=== PATIENT | female | born 1975 | race African-American/Black ===

== ENCOUNTER → 2017-03-03 | Outpatient (CLI) | payer SELFPAY ==
[~2017-03-03] MED LIST: ACETAMINOPHEN W1 TA6 PO; AMOXICILLIN 50500 MG PO; DOXYCYCLINE 10100 MG PO; FLAGYL500 MG PO; IRON324 M1 PO; METRONIDAZOLE375 MG PO; NO HOME MEDICATIONS; NORCO 325 MG-51 TAB PO; PERCOCET 325 MG1 TA2 PO; PHENERGAN W/CO120 ML PO; REGLAN 10MG10 MG/TAB PO; SPRINTEC 35 MCG1 TAB PO; TRIAMCINOLONE0.1% TP; ULTRAM 50MG TAB50 MG PO; VICODIN 5/5001 UDTAB PO
[2017-03-03 13:18] LABS: BASO % 0.3 % (0.0-2.0); EOS # 0.2 (0.0-0.7); EOS % 3.4 % (0-4.0); GRAN # 3.2 (1.4-6.5); GRAN % 55.9 % (42.2-75.2); LYMPH # 1.9 (1.2-3.4); LYMPH % 32.7 % (20.0-51.0); MEAN CELL VOLUME 82 fl (80.0-100.0); MEAN CORPUSCULAR HGB CONC 33 g/dl (33.0-37.0); MEAN PLATELET VOLUME 9.9 fl (7.4-10.4); MONO # 0.4 (0.1-0.6); MONO % 7.4 % (1.7-9.3); PLATELET COUNT 203 K/mm3 (130-400); RED BLOOD COUNT 4.28 M/mm3 (4.10-5.30); REDCELL DISTRIBUTION WIDTH-CV 14.2 % (11.5-14.5); WHITE BLOOD COUNT 5.8 K/mm3 (4.8-10.8)
[2017-03-03 13:20] LABS: HEMATOCRIT 34.9 % (37.0-47.0); HEMOGLOBIN 11.4 g/dl (12.5-16.0); MEAN CORPUSCULAR HEMOGLOBIN 27 pg (27.0-31.0)
[2017-03-03 23:46] LABS: FOLLICLE STIMULATING HORMONE 10.9 mIU/mL (())
== END ==
LOC: COL.LAB 12:44
PROVIDERS: Obstetrics & Gynecology
DX: N92.6 Irregular menstruation, unspecified (principal)

== ENCOUNTER 2017-12-24 09:58 | Emergency (ER) | payer SELFPAY ==
[~2017-12-24] VITALS: Ht 165.1 cm; Wt 104.5 kg
[2017-12-24 09:59] VITALS: BP 120/71; TEMP 98.4
[2017-12-24 11:55] VITALS: PULSE 69
== END 2017-12-24 11:56 | disposition home or self-care (01) ==
LOC: COL.ER 09:58
DX: M54.31 Sciatica, right side (principal); Z98.51 Tubal ligation status; Z98.890 Other specified postprocedural states
CPT/HCPCS: J1885

== ENCOUNTER 2018-08-10 23:33 | Emergency (ER) | payer SELFPAY ==
[~2018-08-10] VITALS: Ht 165.1 cm; Wt 106.8 kg
[2018-08-10 23:34] VITALS: TEMP 99.2
[2018-08-10 23:58] LABS: BASO % 0.4 % (0.0-2.0); EOS # 0.3 (0.0-0.7); EOS % 3.8 % (0-4.0); GRAN # 5.3 (1.4-6.5); GRAN % 62.7 % (42.2-75.2); HEMOGLOBIN 11.9 g/dl (12.5-16.0); LYMPH # 2.1 (1.2-3.4); LYMPH % 25.4 % (20.0-51.0); MEAN CELL VOLUME 81 fl (80.0-100.0); MEAN CORPUSCULAR HEMOGLOBIN 27 pg (27.0-31.0); MEAN CORPUSCULAR HGB CONC 33 g/dl (33.0-37.0); MEAN PLATELET VOLUME 10.4 fl (7.4-10.4); MONO # 0.6 (0.1-0.6); MONO % 7.5 % (1.7-9.3); PLATELET COUNT 208 K/mm3 (130-400); RED BLOOD COUNT 4.47 M/mm3 (4.10-5.30); REDCELL DISTRIBUTION WIDTH-CV 13.2 % (11.5-14.5)
[2018-08-10 23:59] LABS: HEMATOCRIT 36.3 % (37.0-47.0)
[2018-08-11 00:08] LABS: ALANINE AMINOTRANSFERASE 16 U/L (9-52); ALBUMIN 4.2 gm/dL (3.5-5.0); ALKALINE PHOSPHATASE 56 U/L (50-136); ANION GAP 11 mmol/L (7-16); AST,SGOT 21 U/L (15-37); BILIRUBIN,TOTAL 0.4 mg/dL (0.0-1.0); BLOOD UREA NITROGEN 14 mg/dL (7-17); CALCIUM 9.6 mg/dL (8.4-10.2); CARBON DIOXIDE 22 mmol/L (22-30); CHLORIDE 107 mmol/L (98-107); CREATININE, serum 0.88 mg/dL (0.52-1.25); GLUCOSE 115 mg/dL (74-106); LIPASE 122 U/L (23-300); POTASSIUM 3.8 mmol/L (3.4-5.0); SODIUM 139 mmol/L (137-145)
[2018-08-11 00:29] LABS: TROPONIN-I < 0.012 ng/mL (0.000-0.035)
[2018-08-11 03:30] VITALS: BP 110/70; PULSE 80
== END 2018-08-11 03:52 | disposition home or self-care (01) ==
LOC: COL.ER 23:33
PROVIDERS: Emergency Medicine
DX: K21.9 Gastro-esophageal reflux disease without esophagitis (principal)
CPT/HCPCS: Q9967

== ENCOUNTER 2018-11-16 09:29 | Day surgery (SDC) | payer MEDICAID ==
[~2018-11-16] VITALS: Ht 162.6 cm; Wt 114.9 kg
[2018-11-16] MEDS ORDERED: PRIL40 PO (10:10)
[2018-11-16 10:11] VITALS: BP 123/77; PULSE 98; TEMP 97.2
[2018-11-16 12:23] VITALS: BP 129/77; PULSE 80
--- NOTE | 2018-11-16 12:23 | NUR ---
Pt to to [facility] 8 via cart from [place]. Pt drowsy, but awake. Denies pain or nausea. Pt ambulates to recliner with 2 stand by assist. Warm blanket provided. Water and applesauce given per pt request. Will continue to monitor. No visitors here with pt at this time. Call light within reach.
[2018-11-16 12:38] VITALS: BP 115/77; PULSE 84
--- NOTE | 2018-11-16 12:38 | NUR ---
Pt continues to rest. Tolerating food and fluids without difficulties. Call light within reach.
[2018-11-16 12:53] VITALS: BP 107/80; PULSE 71
--- NOTE | 2018-11-16 12:53 | NUR ---
Pt continues to rest. Denies needs. Call light within reach.
[2018-11-16 13:08] VITALS: BP 111/80; PULSE 72
--- NOTE | 2018-11-16 13:08 | NUR ---
Pt continues to rest. Denies needs. Call light within reach.
--- NOTE | 2018-11-16 13:15 | NUR ---
Discharge instructions reviewed. Pt voices understanding. IV site discontinued with all parts intact. Pt up to dress. Call light within reach.
--- NOTE | 2018-11-16 13:30 | NUR ---
Pt escorted to private car via wheel chair. Pt accompanied home by her friend.
== END 2018-11-16 13:30 | disposition home or self-care (01) ==
LOC: SDCO 09:29
DX: K21.0 Gastro-esophageal reflux disease with esophagitis (principal); K44.9 Diaphragmatic hernia without obstruction or gangrene; Z87.891 Personal history of nicotine dependence; Z98.51 Tubal ligation status
CPT/HCPCS: J2250; J2405; J3010; J7030

== ENCOUNTER 2020-06-16 23:07 | Emergency (ER) | payer MEDICAID ==
[~2020-06-16] VITALS: Ht 162.6 cm; Wt 113.6 kg
[~2020-06-16 23:07] MED LIST changes: +PRIL40 PO
[2020-06-16 23:17] VITALS: TEMP 99.8
[2020-06-17] MEDS ORDERED: ZOFRAN ODT4 MG PO (01:09)
[2020-06-17 01:27] VITALS: BP 145/78; PULSE 96
== END 2020-06-17 01:28 | disposition home or self-care (01) ==
LOC: COL.ER 23:07
DX: A08.4 Viral intestinal infection, unspecified (principal)

== ENCOUNTER 2020-06-20 03:37 | Inpatient (IN) | payer MEDICAID ==
[~2020-06-20] VITALS: Ht 162.6 cm; Wt 114.3 kg
[2020-06-20] VITALS (436 sets, daily range): BP systolic 109–122; BP diastolic 57–88; PULSE 84–92; TEMP 98.4–99.8; O2SAT 81–97
[~2020-06-20 03:37] MED LIST changes: +ZOFRAN ODT4 MG PO
[2020-06-20 04:14] LABS: BASO % 0.1 % (0.0-2.0); GRAN # 6.3 (1.4-6.5); GRAN % 78.6 % (42.2-75.2); HEMATOCRIT 37.1 % (37.0-47.0); HEMOGLOBIN 12.2 g/dl (12.5-16.0); LYMPH # 1.3 (1.2-3.4); LYMPH % 16.3 % (20.0-51.0); MEAN CELL VOLUME 81 fl (80.0-100.0); MEAN CORPUSCULAR HEMOGLOBIN 27 pg (27.0-31.0); MEAN CORPUSCULAR HGB CONC 33 g/dl (33.0-37.0); MEAN PLATELET VOLUME 10.2 fl (7.4-10.4); MONO # 0.4 (0.1-0.6); MONO % 4.5 % (1.7-9.3); PLATELET COUNT 230 K/mm3 (130-400); RED BLOOD COUNT 4.59 M/mm3 (4.10-5.30); REDCELL DISTRIBUTION WIDTH-CV 13.7 % (11.5-14.5)
[2020-06-20 04:32] LABS: ALBUMIN 4.2 gm/dL (3.5-5.0); BILIRUBIN,TOTAL 0.5 mg/dL (0.0-1.0); CALCIUM 8.7 mg/dL (8.4-10.2); CREATININE, serum 1.13 (0.52-1.25); POTASSIUM 3.3 mmol/L (3.4-5.0); TOTAL PROTEIN 8.1 gm/dL (6.4-8.2)
[2020-06-20 05:09] LABS: ARTERIAL BLD GAS O2 SATURATION 90.6 % (92-100); ARTERIAL BLD GAS TCO2 CT 27.7; ARTERIAL BLOOD GAS BASE EXCESS 2.3 (-2-2); ARTERIAL BLOOD GAS HCO3 26.5 meq/L (22-26); ARTERIAL BLOOD GAS PCO2 39.3 mmHg (35-45); ARTERIAL BLOOD GAS PO2 58.7 mmHg (80-100); ARTERIAL BLOOD GAS pH 7.45 (7.35-7.45)
--- NOTE | 2020-06-20 08:14 | NUR ---
PATIENT RESTING IN BED. SHE DENIES ANY PAIN OR FURTHER SOB WHILE LAYING IN BED. SHE TAKES NO HOME MEDICATIONS AND HAS NO ALLERGIES. AIRVO AT 30L SAT AT 92%. PATIENT IS NO COMFORTABLE IN BED.
--- NOTE | 2020-06-20 12:30 | NUR ---
Pt arrived to ICU room 8 at this time via w/c with medical staff. Able to get to bed with SBA, feeling very SOB when ambulating. On airvo at 45L to maintain 02 sats of 90%. Resting in bed now. Lungs are very diminished at the bases, and wheezing expiratory. Will continue to monitor.
--- NOTE | 2020-06-20 13:13 | NUR ---
attempted to call but no answer.
--- NOTE | 2020-06-20 17:30 | NUR ---
Pt has been doing well this afternoon. Resting in bed, denies any dyspnea at rest in bed, called sister per pt request. Kavitha [phone] she wuold like to be updated when possible with pt status. Denies pain, 2nd IV started to RH. Will continue to monitor.
--- NOTE | 2020-06-20 18:19 | NUR ---
Started transfusion of convalescent plasma at this time. Pt verbalized consent. Verified with 2nd RN. Pt feeling very SOB after ambulating to bathroom and back. Resting in bed now, will remain at bedside for first 15 minutes.
--- NOTE | 2020-06-20 19:32 | NUR ---
Shift report received. pt awake and lying in bed. no reactions to plasma this time. VS stable as charted. mild SOB at rest with strong occasional cough. call light within reach. will cont to monitor
--- NOTE | 2020-06-20 20:55 | NUR ---
Evening meds given. PT AOX4. denies pain. O2 sats maintained 93% on Airvo 45L. robutussin given for cough. reports no BM since but today is also first day she reports no nausea and ability to keep food down. ate approx 60% dinner. Aware of fluid restriction. tolerating meds. standby ambulation. FFP complete @ 1952. no reactions noted. IV X2 intact. potasium replaced day shift. continued low grade fever. ambulated in room for several minutes. call light within reach. requested all side rails up for comfort/personals. will cont to monitor
--- NOTE | 2020-06-20 21:10 | NUR ---
PT increased to 50L 80% by RT. O2 sat now 93-95%.
--- NOTE | 2020-06-20 23:07 | NUR ---
pt had a long coughing spell when attempting to stand and reposition in bed. desatted to 86% n 50L Airvo and experienced increased resulting SOB. RR 30-38. Was able to catch breath after 8 mins with O2 sat currently 92%. RT notified of tachypnea. denied chest pain, N/V. Just trouble catching her breath. call light within reach
--- NOTE | 2020-06-20 23:43 | NUR ---
PT RESTING IN BED. COUGH SYRUP GIVEN. CURRENTLY 95% ON 50L AIRVO AND RR 26 TO 33. PT DENIES INCREASED AIR HUNGER OR SOB. CALL LIGHT WITHIN REACH. WILL CONT TO MONITOR
[2020-06-21] VITALS (738 sets, daily range): BP systolic 100–118; BP diastolic 62–75; PULSE 77–91; TEMP 98–99.2; O2SAT 84–100
--- NOTE | 2020-06-21 00:30 | NUR ---
PT sustaining 90 to 94% on 50L Airvo @80%. RR ranging 24 to 33. unable to sleep due to not finding comfortable positioning. repositioned multiple times this shift. wondering of she could get some benadryl.
--- NOTE | 2020-06-21 03:55 | NUR ---
PT FELL ASLEEP BETWEEN 0200 AND 0345 BUT CALLED STATING SHE HAD WOKEN UP NAUSEOUS. ICE CHIPS PROVIDED AND REPORTS SOME RELIEF. DENIES CHEST PAIN, DIAPHORESIS, NO EMESIS NOTED, DENIES CLEMENT. VSS CHARTED. ASSESSMENT OTHERWISE UNCHANGED. VOIDED ONCE THUS FAR THIS SHIFT. CALL LIGHT WITHIN REACH
[2020-06-21 06:14] LABS: BASO % 0.1 % (0.0-2.0); GRAN # 8.7 (1.4-6.5); GRAN % 83.4 % (42.2-75.2); LYMPH # 1.1 (1.2-3.4); LYMPH % 10.2 % (20.0-51.0); MEAN CELL VOLUME 81 fl (80.0-100.0); MEAN CORPUSCULAR HEMOGLOBIN 27 pg (27.0-31.0); MEAN CORPUSCULAR HGB CONC 33 g/dl (33.0-37.0); MONO # 0.6 (0.1-0.6); MONO % 5.5 % (1.7-9.3); PLATELET COUNT 245 K/mm3 (130-400); RED BLOOD COUNT 4.13 M/mm3 (4.10-5.30); REDCELL DISTRIBUTION WIDTH-CV 13.8 % (11.5-14.5)
[2020-06-21 06:15] LABS: HEMATOCRIT 33.4 % (37.0-47.0)
[2020-06-21 06:23] LABS: CALCIUM 8.7 mg/dL (8.4-10.2); CREATININE, serum 0.87 (0.52-1.25); POTASSIUM 4.1 mmol/L (3.4-5.0)
--- NOTE | 2020-06-21 07:16 | NUR ---
Report received from LESLEE Franklin. Pt in bed sleeping with Airvo on at 50L/80%. Will continue to monitor.
--- NOTE | 2020-06-21 08:42 | NUR ---
Assessment charted. PT up to bathroom to void 500 keo clear urine, got very short of breath when ambulating but saturations did not drop below 86% and returned to 90% wihtin 1 minute. Pt states she did not get much rest and melatonin given in the night has given her some nausea. Does not feel well today, still feels very short of breath and has upset stomach. Refusing to eat breakfast but will try later. INT to LA/C and RH. AirVo turned up to 50L/83% by RT. Resting in bed between disturbances. Will continue to monitor.
--- NOTE | 2020-06-21 10:42 | NUR ---
Sw contacted patient via phone to complete intake assessment. Patient currently lives in [place] with her daughter Calvin, however she wished to keep her mother [place] [phone]. Medical nurse records reviewed also listed patients sister Kavitha [phone] as a contact. Patient indicated she was independent with ADL's and that she does not currently have a DPOA. PAtient does not utilize any DME's and her current PCP is Dr. Abdi, with no upcoming appointments. Patient reports [facility] [place] with no concerns. Patient was unsure of any additional needs. For now this SW did leave a copy of a DPOA (per patients request), and a [employer] home health form with patients nurse. Sw will continue to follow.
--- NOTE | 2020-06-21 13:33 | NUR ---
Pt resting in bed, has been up a few times to bathroom, most recently able to ambulate to commode and back without oxygenation status dropping below 90%. Called sister Kavitha per rupert and left a VM. Dr. Beach and Nicholas have seen pt today and update provided to Vishnu.
--- NOTE | 2020-06-21 17:48 | NUR ---
Pt 02 needs have stablized over the shift, IVF to L A/C at 75 helping keep BPs stable, pt not taking much in PO as of yet, has little appetite. Resting in bed, denies needs, will give report to nightshift nurse who will resume care.
--- NOTE | 2020-06-21 20:00 | NUR ---
Assessment complete. Patient is resting in bed and is arousable to voice. She wears 50 liters 02 via airvo and only shows dyspnea on exertion. Patient denies pain and states she is "feeling better today". She has intermittent, nonproductive cough. Call light in reach, no new concerns. Will continue to monitor.
[2020-06-22] VITALS (502 sets, daily range): BP systolic 108–128; BP diastolic 73–83; PULSE 76–94; TEMP 98–99.2; O2SAT 89–100
--- NOTE | 2020-06-22 | NUR ---
Patient currently relaxing in bed but is not asleep. Her intermittent cough has become slightly more frequent tonight. She becomes SOA on exertion but is still satting 97% on airvo. Fluids infusing into left a/c IV. No new concerns, call light in reach.
[2020-06-22 06:23] LABS: GRAN # 6.9 (1.4-6.5); HEMOGLOBIN 11.3 g/dl (12.5-16.0); LYMPH # 1.1 (1.2-3.4); LYMPH % 12.5 % (20.0-51.0); MEAN CELL VOLUME 83 fl (80.0-100.0); MEAN CORPUSCULAR HEMOGLOBIN 27 pg (27.0-31.0); MEAN CORPUSCULAR HGB CONC 32 g/dl (33.0-37.0); MEAN PLATELET VOLUME 10.2 fl (7.4-10.4); MONO # 0.5 (0.1-0.6); MONO % 5.7 % (1.7-9.3); PLATELET COUNT 297 K/mm3 (130-400); RED BLOOD COUNT 4.24 M/mm3 (4.10-5.30)
[2020-06-22 06:25] LABS: CALCIUM 8.7 mg/dL (8.4-10.2); CREATININE, serum 0.95 (0.52-1.25); POTASSIUM 4.3 mmol/L (3.4-5.0)
--- NOTE | 2020-06-22 08:49 | NUR ---
Assessment completed, alert/oriented, vital signs stable/ afebrile, denies pain or discomfort, she reports overall feeling better, lungs are CTA/ dimninished bases, still gets SOA with exertion/activity, Airvo settings remain at 50L/83%fio2 and sats are 95%, heart RRR/distal pulses are palpable, will have PICC line placed this morning, potassium 4.3 / no replacement needed she is getting up and going to and from the toilet, She denies other needs this moring, will continue to monitor
--- NOTE | 2020-06-22 12:02 | NUR ---
Chaplain vickyed outside of door of patient.
--- NOTE | 2020-06-22 13:13 | NUR ---
The patient has orders to transfer to the medical floor.
--- NOTE | 2020-06-22 15:25 | NUR ---
Patient has floor transfer orders, I have called and given report to receiving nurse LESLEE Darling, patient placed on non-rebreather at 25L. for transport, transfered to room 317 by wheelchair, placed back on Airvo at previous settings of 50L/83% Fio2, telemetry in place, met receiving nurse in the room and patient ambulated with stand by assist to the bathroom
--- NOTE | 2020-06-22 15:31 | NUR ---
Patient alert and oriented. denies any pain. bilateral upper lobes clear, lung bases are diminished. heart sound is normal. RN observed patient ambulate independently to the restroom. Patient resting in bed at this moment.
--- NOTE | 2020-06-22 19:30 | NUR ---
RECEIVED CHANGE OF SHIFT REPORT FROM DAY SHIFT NURSE.
--- NOTE | 2020-06-22 20:00 | NUR ---
PATIENT DENIES ANY NEEDS OR C/O AT THIS TIME. REFUSED SCHEDULED MED, MELATONIN, STATING THAT SHE DID NOT FEEL GOOD AFTER TAKE MELATONIN LAST NIGHT. REPORT SHE FEELS THAT SHE IS NOT SHORT OF BREATH WITH EXERTION, IS SHORT OF BREATH WITH COUGHING. REPORTS HAD BM TODAY, HAS HAD NOT PROBLEM WITH VOIDING REPORTED BY PATIENT.
[2020-06-23 01:07] VITALS: BP 110/80; PULSE 82; TEMP 98.5
[2020-06-23 05:00] VITALS: BP 114/82; PULSE 80; TEMP 98.4
--- NOTE | 2020-06-23 05:08 | NUR ---
OBSERVED RESP RATE INCREASED AFTER COUGHING, OBSERVED COUGH MOIST THAT IS PRODUCTIVE, PATIENT REPORTING SPUTUM IS THIN, SMALL AMOUNTS SPUTUM. REPORTED EARLIER HAD EMESIS OF PHELGM AFTER COUGHING. DENIES PROLONGED NAUSEA, SHORTNESS OF BREATH/CHEST PAIN AFTER EMESIS, REPORTED HAD "PANIC ATTACK AFTER EMESIS 'JUST WANTED IT TO STOP'". REPORTED FEELINGS OF PANIC SUBSIDED. CURRENTLY DOES NOT HAVE ANY NEEDS/REQUESTS AT THIS TIME.
[2020-06-23 06:36] LABS: BASO % 0.1 % (0.0-2.0); EOS % 0.2 % (0-4.0); GRAN # 8.3 (1.4-6.5); GRAN % 79.4 % (42.2-75.2); HEMOGLOBIN 11.1 g/dl (12.5-16.0); LYMPH # 1.3 (1.2-3.4); LYMPH % 12.1 % (20.0-51.0); MEAN CELL VOLUME 83 fl (80.0-100.0); MEAN CORPUSCULAR HEMOGLOBIN 27 pg (27.0-31.0); MEAN CORPUSCULAR HGB CONC 32 g/dl (33.0-37.0); MEAN PLATELET VOLUME 9.4 fl (7.4-10.4); MONO # 0.8 (0.1-0.6); MONO % 7.2 % (1.7-9.3); PLATELET COUNT 353 K/mm3 (130-400); RED BLOOD COUNT 4.16 M/mm3 (4.10-5.30); REDCELL DISTRIBUTION WIDTH-CV 13.7 % (11.5-14.5)
[2020-06-23 06:41] LABS: HEMATOCRIT 34.4 % (37.0-47.0)
[2020-06-23 06:52] LABS: CALCIUM 8.5 mg/dL (8.4-10.2); CREATININE, serum 0.86 (0.52-1.25)
--- NOTE | 2020-06-23 07:27 | NUR ---
Change of shift report given to day shift nurseLisset.
[2020-06-23 08:39] VITALS: BP 120/85; PULSE 87; TEMP 98.3
--- NOTE | 2020-06-23 11:45 | NUR ---
Chaplain bronson for patient while standing outside the door.
[2020-06-23 12:08] VITALS: BP 115/82; PULSE 81; TEMP 98.7
[2020-06-23 16:31] VITALS: BP 117/75; PULSE 88; TEMP 98.5
--- NOTE | 2020-06-23 17:39 | NUR ---
Patient alert and oriented. Denies any pain. patient on 50L Airvo at Fio2 80%. ambulate independently in the room. Dr Sinclair discontinued tele order. Patient had an uneventful day. Patient resting in bed at this time.
[2020-06-23 20:43] VITALS: BP 110/80; PULSE 76; TEMP 99.4
--- NOTE | 2020-06-23 20:50 | NUR ---
Seen patient awake, sitting in bed. She;s on Airvo at 50L, 80%. She is alert and oriented. She wanted to take a bath and asked for assistance. Informed her that I will send in the COMMUNITY ENGAGEMENT MANAGER to help her. Instructed her to avoid to wet the PICC line. She said that she will just wipe and clean her body in the bathroom. Due Melatonin 6mg offered to patient. she states that the first time she had it, she felt nauseous when she woke up. She wants a medicine to help her sleep but in a lower dose. Informed her that I will ask the hospitalist for an order for 1 tablet of Melatonin instead of 2 tablets. Patient agreed and verbalized understanding.
--- NOTE | 2020-06-23 22:00 | NUR ---
Patient cleaned herself in the bathroom assisted by KARIE. No difficulty of breathing noted after her quick bath. She was still on Airvo while she was cleaning herself. Took her SPO2 after her bathe and she was at 94%. Sleeping pill given. No other needs at this time.
[2020-06-24] VITALS (7 sets, daily range): BP systolic 100–132; BP diastolic 50–78; PULSE 71–80; TEMP 97.8–98.8
--- NOTE | 2020-06-24 06:29 | NUR ---
Patient had uneventful night. Still on airvo at 50L, 80%. Her SPO2 range at 90-95%.
--- NOTE | 2020-06-24 07:00 | NUR ---
Report received from LESLEE Laird. pT in bed resting per nightshift will continue to monitor.
--- NOTE | 2020-06-24 10:23 | NUR ---
Assessment charted. Pt up ad lana in room, got recliner ready per her request d/t back pain from being in bed for so long. Lungs are still diminished from mid lung to bases. Resting in chair, significantly less short of breath after ambulating to chair. Denies other needs, PRN pain meds provided. PICC to LEE ANN flushes well and good blood return. Will continue to monitor.
--- NOTE | 2020-06-24 18:04 | NUR ---
Pt has done well today, up ad lana in room hourly per patient. PT wanting to start titrating down off 02, called RT to relay this info, per RT nightshift or tomorrow will start titrating. Resting in chair at side of bed, pian improved with sitting in recliner to back. Denies needs, will give report to nightshift nurse who will resume care.
--- NOTE | 2020-06-24 20:00 | NUR ---
Assessment complete. Patient is sitting up in recliner, denies pain, and states she is breathing well. She wears 50 liters oxygen via airvo and shows no signs of increased work of breathing. Right upper arm PICC flushes easily. No new concerns; Call light in reach.
[2020-06-25 04:28] VITALS: BP 102/58; PULSE 68; TEMP 98.2
--- NOTE | 2020-06-25 06:17 | NUR ---
Patient has had a restful night with no complaints of pain or shortness of air. She is still on 50 liters airvo with 80%. Call light in reach.
[2020-06-25 09:20] VITALS: BP 122/74; PULSE 80; TEMP 98.5
--- NOTE | 2020-06-25 09:54 | NUR ---
Assessment completed, alert/oriented, vital signs stable, denies pain, reports feeling better in overall, breathing is getting easier, lungs CTA/ diminished, RT plans to titrate down on her Airvo, heart RRR/dsital pulses are palpable, she has been up ambulating more, denies other needs at this time
[2020-06-25 11:45] VITALS: BP 105/65; PULSE 77; TEMP 98.4
[2020-06-25 18:02] VITALS: BP 119/71; PULSE 88; TEMP 98.7
[2020-06-25 19:53] VITALS: BP 110/47; PULSE 83; TEMP 98.8
--- NOTE | 2020-06-25 20:20 | NUR ---
Seen patient in the recliner, talking on the phone. She is on airvo at 45L, 56%. No shortness of breath and can talk in full sentences now. She denies pain. PICC line flushes well. Changed patient's bed sheets and blankets while she is still in the recliner. She states that hopefully she can be off airvo soon and can be on nasal cannula. Call light within reach.
[2020-06-25 23:39] VITALS: BP 113/58; PULSE 65; TEMP 98.2
[2020-06-26 03:41] VITALS: BP 115/72; PULSE 60; TEMP 98.3
--- NOTE | 2020-06-26 05:53 | NUR ---
Patient had uneventful night. She is still on Airvo at 45L, 55%. Her SPO2 was at 96%. She denies pain. No other needs noted.
[2020-06-26 07:05] LABS: EOS % 0.2 % (0-4.0); GRAN # 6.3 (1.4-6.5); GRAN % 75.1 % (42.2-75.2); HEMOGLOBIN 10.5 g/dl (12.5-16.0); LYMPH # 1.2 (1.2-3.4); MEAN CELL VOLUME 81 fl (80.0-100.0); MEAN CORPUSCULAR HEMOGLOBIN 27 pg (27.0-31.0); MEAN CORPUSCULAR HGB CONC 33 g/dl (33.0-37.0); MEAN PLATELET VOLUME 9.8 fl (7.4-10.4); MONO # 0.8 (0.1-0.6); MONO % 9.5 % (1.7-9.3); PLATELET COUNT 382 K/mm3 (130-400); RED BLOOD COUNT 3.94 M/mm3 (4.10-5.30); REDCELL DISTRIBUTION WIDTH-CV 13.6 % (11.5-14.5)
[2020-06-26 07:12] LABS: CALCIUM 8.8 mg/dL (8.4-10.2); CREATININE, serum 0.8 (0.52-1.25); MAGNESIUM 2.2 mg/dL (1.6-2.3); POTASSIUM 4.7 mmol/L (3.4-5.0)
[2020-06-26 07:27] LABS: HEMATOCRIT 31.8 % (37.0-47.0)
[2020-06-26 08:09] VITALS: BP 110/78; PULSE 81; TEMP 98.1
--- NOTE | 2020-06-26 08:14 | NUR ---
trial on oxymask this am, 88% on 10 lpm. will trial again at 1400.
--- NOTE | 2020-06-26 08:55 | NUR ---
Pt assessment complete. Pt sitting up in bed upon entry, she is A/O x4. Her breathing is even and unlabored on Airvo, she denies SOB. Denies any pain at this time. No N/V/D. Pt denies any needs at this time. Call light within reach.
[2020-06-26 12:05] VITALS: BP 110/61; PULSE 72; TEMP 98
--- NOTE | 2020-06-26 12:24 | NUR ---
INSTRUCTED PATIENT ON USE OF IS. PULLED 450LPM. SET GOAL OF 1200.
--- NOTE | 2020-06-26 12:27 | NUR ---
PATIENT IS OFF AIRVO2, ON 6LPM, SPO2 93%. WILL CONTINUE TO MONITOR.
--- NOTE | 2020-06-26 15:34 | NUR ---
PATIENT PULLED 1000LPM ON IS. GOOD JOB
[2020-06-26 16:19] VITALS: BP 115/61; PULSE 70; TEMP 98.6
--- NOTE | 2020-06-26 18:51 | NUR ---
Up independently in room. Denied any pain or concerns today. Doing well on 6L O2 via OM. No needs at this time.
[2020-06-26 19:01] VITALS: BP 104/49; PULSE 78; TEMP 98.5
--- NOTE | 2020-06-26 20:15 | NUR ---
Seen patient awake, sitting in the recliner. She is on 6L oxymask. She states she's happy that she is doing well and not on airvo anymore. She denies pain. Lungs are clear. No other needs at this time.
[2020-06-26 23:44] VITALS: BP 108/45; PULSE 76; TEMP 97.9
--- NOTE | 2020-06-27 02:14 | NUR ---
Checked on patient's CBI. It is draining well. Was able to get 2250ml output, pinkish in color. Patient denies pain.
[2020-06-27 03:39] VITALS: BP 112/67; PULSE 60; TEMP 98.5
--- NOTE | 2020-06-27 06:24 | NUR ---
Patient had uneventful night. She denies pain. Still on oxymask 6L. No other needs needed.
[2020-06-27 07:54] VITALS: BP 115/75; PULSE 68; TEMP 98.5
--- NOTE | 2020-06-27 09:00 | NUR ---
Pt assessment complete. Pt is sitting up in bed talking on the telephone. She is A/O x4. Her breathing is even and unlabored on 6L OM. She denies any SOB. Minimal coughing. Denies any pain. No N/V/D. No concerns or needs at this time. Call light within reach.
[2020-06-27 12:04] VITALS: BP 100/62; PULSE 73; TEMP 98.1
[2020-06-27 16:46] VITALS: BP 128/80; PULSE 84; TEMP 98.3
--- NOTE | 2020-06-27 18:54 | NUR ---
Pt had uneventful day. Remained on 6L OM. No pain or concerns. Call light within reach.
[2020-06-27 19:45] VITALS: BP 107/57; PULSE 73; TEMP 98.7
--- NOTE | 2020-06-27 23:09 | NUR ---
Patient laying in bed and watching TV upon enter the room. Patient pleasant, A/O x4. Patient denies any pain or discomfort. Denies SOB or dyspnea. Breathing even and unlabored. SPO2 97% on Oxymask 7L. No s/s of respiratory distress noted. Scheduled meds given per order. Right upper arm PTCC site has no s/s of complications. Flushed with 10ml NS on double lumen without difficulty. Call light within reach. Patient denies any needs at this time.
[2020-06-27 23:32] VITALS: BP 116/60; PULSE 77; TEMP 98.6
[2020-06-28 03:49] VITALS: BP 104/53; PULSE 61; TEMP 97.6
--- NOTE | 2020-06-28 04:06 | NUR ---
Patient resting in bed with eyes closed at 3am. No s/s of respiratory distress noted. SPO2 97% on Oxymask 6L. Titrated O2 to 5L. SPO2 96% on 5L via Oxymask. Patient awake and watching TV at 4 am. Patient denies SOB or dyspnea. SPO2 96% on 5L via Oxymask. Titrated O2 to 5L at this time. SPO2 96-97% on 4L via Oxymask. Will continue to monitor.
--- NOTE | 2020-06-28 05:56 | NUR ---
Titrate O2 to 3L at 05:30 am. SPO2 96% on 3L via oxymask. Patient denies SOB or dyspnea. No s/s of respiratory distress. Will continue to monitor. Call light within reach.
[2020-06-28 07:49] VITALS: BP 106/57; PULSE 57; TEMP 97.9
--- NOTE | 2020-06-28 08:51 | NUR ---
Pt assessment complete. Pt sleeping upon entrance, arouses to voice. She is A/O x4. Her breathing is currently even and unlabored on 3L O2 via OM. O2 sat 97%, turned down to 2L maintained O2 sat. Pt denies SOB at rest and on exertion. Has no pain. Denies N/V/D. POC discussed with patient who verbalizes understanding. No needs at this time. Call light within reach.
[2020-06-28 12:43] VITALS: BP 101/61; PULSE 66; TEMP 98
[2020-06-28 16:16] VITALS: BP 104/59; PULSE 74; TEMP 98.1
--- NOTE | 2020-06-28 17:52 | NUR ---
Pt's oxygen turned down to 1L O2 via OM. Pt was up to the shower this afternoon. POC discussed with patient, who is hopeful to go home tomorrow.
[2020-06-28 20:00] VITALS: BP 109/68; PULSE 75; TEMP 98.2
--- NOTE | 2020-06-28 20:05 | NUR ---
Patient assessed at this time. Alert and oriented x 4, and able to make needs known. Denies having pain and discomfort at this time. Double lumen PICC to RUE. Denies SOB and dyspnea. On oxygen at 1 L/min via oxymask. Offered to change to nasal cannula, but declined. LS CTA. Respirations even and unlabored. HRR. Capillary refill less than 3 seconds. Non-tenting skin turgor. BSAx4. Abdomen soft and non-tender. No edema. Updated on plan to complete exercise oximetry testing tomorrow morning and discharging as long as everything goes well. Voiced understanding. Voices no questions, needs, or concerns at this time. Resting in bed with call light within reach.
[2020-06-28 23:39] VITALS: BP 120/69; PULSE 76; TEMP 98.4
[2020-06-29 04:18] VITALS: BP 111/81; PULSE 68; TEMP 98
--- NOTE | 2020-06-29 06:19 | NUR ---
Patient has been resting in bed. Received PRN Tums once during the night for ascid reflux. Denies any other questions, needs, or concerns this shift. Continues to wear oxygen at 1 L/min via oxymask. Denies SOB and dyspnea. Resting in bed with call light within reach.
[2020-06-29 06:35] LABS: BASO % 0.1 % (0.0-2.0); EOS % 0.1 % (0-4.0); GRAN # 8.8 (1.4-6.5); HEMOGLOBIN 10.8 g/dl (12.5-16.0); LYMPH # 1.5 (1.2-3.4); LYMPH % 12.9 % (20.0-51.0); MEAN CELL VOLUME 80 fl (80.0-100.0); MEAN CORPUSCULAR HEMOGLOBIN 26 pg (27.0-31.0); MEAN CORPUSCULAR HGB CONC 33 g/dl (33.0-37.0); MEAN PLATELET VOLUME 10.3 fl (7.4-10.4); MONO # 1.2 (0.1-0.6); MONO % 9.9 % (1.7-9.3); PLATELET COUNT 394 K/mm3 (130-400); RED BLOOD COUNT 4.09 M/mm3 (4.10-5.30); REDCELL DISTRIBUTION WIDTH-CV 13.9 % (11.5-14.5)
[2020-06-29 06:36] LABS: HEMATOCRIT 32.9 % (37.0-47.0)
[2020-06-29 06:50] LABS: CALCIUM 9.3 mg/dL (8.4-10.2); CREATININE, serum 0.82 (0.52-1.25); MAGNESIUM 2.2 mg/dL (1.6-2.3); POTASSIUM 4.8 mmol/L (3.4-5.0)
--- NOTE | 2020-06-29 07:13 | NUR ---
PATIENT REQUIRED 2 LPM DURING AMBULATION >88%.
[2020-06-29 08:09] VITALS: BP 94/49; PULSE 66; TEMP 98.3
[2020-06-29] MEDS ORDERED: OXYGEN (09:28)
[2020-06-29] MEDS ORDERED: PROAIR DIGIHAL90 MCG IH (09:29)
--- NOTE | 2020-06-29 09:40 | NUR ---
Assessment completed, alert/oriented, vital signs stable, denies pain or discomfort, heart RRR, lungs CTA/ diminished, exercise ox done and patient will require 2L o2 with activity/ ambulation, I notified whom is seeing the patient now and placing orders for discharge, patient denies other needs at this time
[2020-06-29 11:31] VITALS: BP 101/62; PULSE 75; TEMP 98.5
--- NOTE | 2020-06-29 12:30 | NUR ---
Patient discharging home, discussed discharge orders, instructed to follow up with via tele health appointment as scheduled, instructed to get CXR in 1 month, albuterol script sent to pharmacy for her, PICC removed by AIV/ post PICC instructiosn discussed, patient leaving with her son, I escorted her out by wheelchair
--- NOTE | 2020-06-29 15:38 | NUR ---
[employer] contacted patient on room phone as she will qualify for home oxygen upon discharge. Patient will need 2 liters with ambulation. Patient would like to order home oxygen through [facility]. ZURDO contacted Makenzie at [facility] and faxed referral/order. Makenzie advised that [facility] would deliver oxygen up to patient today. ZURDO provided update to RNTl. No additional needs at this time.
== END 2020-06-29 13:00 | disposition home or self-care (01) | DRG 177 ==
LOC: COL.ER 03:37 → MEDICAL 06:27 → ICU 11:44 → MEDICAL 06-22 13:47
PROVIDERS: Family Medicine; Internal Medicine; Student in an Organized Health Care Education/Training Program; ADMIT Hospitalist
PROC: XW033E5 Introduction of Remdesivir Anti-infective into Peripheral Vein, Percutaneous Approach, New Technology Group 5 (ICD-10-PCS; principal; 2020-06-20)
PROC: XW14325 Transfusion of Convalescent Plasma (Nonautologous) into Central Vein, Percutaneous Approach, New Technology Group 5 (ICD-10-PCS; 2020-06-20)
PROC: 02H633Z Insertion of Infusion Device into Right Atrium, Percutaneous Approach (ICD-10-PCS; 2020-06-22)
DX: U07.1 COVID-19 (principal); J12.89 Other viral pneumonia; J96.01 Acute respiratory failure with hypoxia; R65.10 Systemic inflammatory response syndrome (SIRS) of non-infectious origin without acute organ dysfunction; E87.1 Hypo-osmolality and hyponatremia; Z68.41 Body mass index [BMI] 40.0-44.9, adult; K21.9 Gastro-esophageal reflux disease without esophagitis; E87.6 Hypokalemia; D64.9 Anemia, unspecified; G43.909 Migraine, unspecified, not intractable, without status migrainosus; E66.9 Obesity, unspecified; R74.01 Elevation of levels of liver transaminase levels; Z73.0 Burn-out
CPT/HCPCS: 99223-AI; 99232-AI; 99233-AI; 99239; A9284; C1751; J0696; J1100; J1650; J7030; J7050; J8540

== ENCOUNTER 2020-09-14 22:20 | Emergency (ER) | payer MEDICAID ==
[~2020-09-14] VITALS: Ht 162.6 cm; Wt 109.1 kg
[~2020-09-14 22:20] MED LIST changes: +OXYGEN; +PROAIR DIGIHAL90 MCG IH
[2020-09-14 22:23] VITALS: TEMP 97.7
[2020-09-14 22:46] LABS: BASO % 0.3 % (0.0-2.0); EOS # 0.2 (0.0-0.7); GRAN # 4.6 (1.4-6.5); GRAN % 62.1 % (42.2-75.2); HEMOGLOBIN 11.6 g/dl (12.5-16.0); LYMPH # 2.1 (1.2-3.4); LYMPH % 28.7 % (20.0-51.0); MEAN CELL VOLUME 83 fl (80.0-100.0); MEAN CORPUSCULAR HEMOGLOBIN 28 pg (27.0-31.0); MEAN CORPUSCULAR HGB CONC 33 g/dl (33.0-37.0); MONO # 0.5 (0.1-0.6); MONO % 6.6 % (1.7-9.3); PLATELET COUNT 231 K/mm3 (130-400); RED BLOOD COUNT 4.21 M/mm3 (4.10-5.30); REDCELL DISTRIBUTION WIDTH-CV 13.2 % (11.5-14.5)
[2020-09-14 22:47] LABS: HEMATOCRIT 35.1 % (37.0-47.0)
[2020-09-14 22:56] LABS: ALANINE AMINOTRANSFERASE 14 U/L (4-34); ALBUMIN 4.3 gm/dL (3.5-5.0); ALKALINE PHOSPHATASE 46 U/L (50-136); ANION GAP 6 mmol/L (7-16); AST,SGOT 24 U/L (15-37); BILIRUBIN,TOTAL 0.5 mg/dL (0.0-1.0); BLOOD UREA NITROGEN 15 mg/dL (7-17); CALCIUM 9.5 mg/dL (8.4-10.2); CARBON DIOXIDE 26 mmol/L (22-30); CHLORIDE 107 mmol/L (98-107); CREATINE KINASE 132 U/L (30-135); CREATININE, serum 0.91 (0.52-1.25); GLUCOSE 103 mg/dL (74-106); SODIUM 140 mmol/L (137-145); TOTAL PROTEIN 7.5 gm/dL (6.4-8.2)
[2020-09-14 23:10] LABS: TROPONIN-I < 0.012 ng/mL (0.000-0.035)
[2020-09-14 23:56] VITALS: BP 107/79; PULSE 81
== END 2020-09-15 00:06 | disposition home or self-care (01) ==
LOC: COL.ER 22:20
PROVIDERS: Emergency Medicine
DX: R07.89 Other chest pain (principal); F41.0 Panic disorder [episodic paroxysmal anxiety]
CPT/HCPCS: J2060

== ENCOUNTER → 2021-11-08 | Outpatient (CLI) | payer MEDICAID | LOC: MC.RAD 10:51 | DX: Z12.31 Encounter for screening mammogram for malignant neoplasm of breast (principal) ==

== ENCOUNTER 2022-01-06 10:21 | Emergency (ER) | payer MEDICAID ==
[~2022-01-06] VITALS: Ht 162.6 cm; Wt 120.5 kg
[2022-01-06 10:31] VITALS: BP 119/81; TEMP 98.7
[2022-01-06 11:29] VITALS: PULSE 73
== END 2022-01-06 11:32 | disposition home or self-care (01) ==
LOC: COL.ER 10:21
DX: M54.40 Lumbago with sciatica, unspecified side (principal); M25.561 Pain in right knee; Z86.16 Personal history of COVID-19

== ENCOUNTER 2022-01-10 20:26 | Emergency (ER) | payer MEDICAID ==
[~2022-01-10] VITALS: Ht 162.6 cm; Wt 118.2 kg
[2022-01-10 20:31] VITALS: TEMP 98.7
[2022-01-10 21:08] LABS: BASO % 0.3 % (0.0-2.0); EOS # 0.3 K/mm3 (0.0-0.7); EOS % 3.2 % (0.0-4.0); GRAN # 4.3 K/mm3 (1.4-6.5); GRAN % 54.8 % (42.2-75.2); HEMOGLOBIN 10.7 g/dl (12.5-16.0); LYMPH # 2.6 K/mm3 (1.2-3.4); LYMPH % 33.6 % (20.0-51.0); MEAN CELL VOLUME 81 fl (80.0-100.0); MEAN CORPUSCULAR HEMOGLOBIN 26 pg (27-31); MEAN CORPUSCULAR HGB CONC 32 g/dl (33.0-37.0); MEAN PLATELET VOLUME 10.4 fl (7.4-10.4); MONO # 0.6 K/mm3 (0.1-0.6); PLATELET COUNT 227 K/mm3 (130-400); REDCELL DISTRIBUTION WIDTH-CV 13.7 % (11.5-14.5)
[2022-01-10 21:19] LABS: HEMATOCRIT 33.3 % (37.0-47.0)
[2022-01-10 21:22] LABS: INR 1.1 (0.8-3.0); PROTHROMBIN TIME 12.8 SECONDS (9.7-12.8)
[2022-01-10 21:55] VITALS: BP 124/98; PULSE 77
== END 2022-01-10 21:58 | disposition home or self-care (01) ==
LOC: COL.ER 20:26
PROVIDERS: Physician Assistant
DX: S70.11XA Contusion of right thigh, initial encounter (principal); X58.XXXA Exposure to other specified factors, initial encounter

== ENCOUNTER → 2023-04-12 | Outpatient (CLI) | payer MEDICAID | LOC: MC.RAD 13:18 | DX: Z12.31 Encounter for screening mammogram for malignant neoplasm of breast (principal) ==

== ENCOUNTER 2023-05-02 23:01 | Emergency (ER) | payer MEDICAID ==
[~2023-05-02] VITALS: Ht 165.1 cm; Wt 97.7 kg
[2023-05-02 23:07] VITALS: TEMP 97.6
[2023-05-02 23:18] LABS: BASO % 0.3 % (0.0-2.0); EOS # 0.2 K/mm3 (0.0-0.7); GRAN # 4.1 K/mm3 (1.4-6.5); GRAN % 53.2 % (42.2-75.2); HEMATOCRIT 33.5 % (37.0-47.0); HEMOGLOBIN 11.2 g/dl (12.5-16.0); LYMPH # 2.8 K/mm3 (1.2-3.4); LYMPH % 36.8 % (20.0-51.0); MEAN CELL VOLUME 83 fl (80.0-100.0); MEAN CORPUSCULAR HEMOGLOBIN 28 pg (27-31); MEAN CORPUSCULAR HGB CONC 33 g/dl (33.0-37.0); MEAN PLATELET VOLUME 9.8 fl (7.4-10.4); MONO # 0.5 K/mm3 (0.1-0.6); MONO % 6.6 % (1.7-9.3); PLATELET COUNT 233 K/mm3 (130-400); RED BLOOD COUNT 4.03 M/mm3 (4.10-5.30)
[2023-05-02 23:35] LABS: ALBUMIN 3.9 gm/dL (3.5-5.0); BILIRUBIN,TOTAL 0.5 mg/dL (0.2-1.2); CALCIUM 9.5 mg/dL (8.4-10.2); CREATININE, serum 0.95 mg/dL (0.57-1.11); POTASSIUM 3.4 mmol/L (3.5-4.5); TOTAL PROTEIN 7.5 gm/dL (6.2-8.1)
[2023-05-03] MEDS ORDERED: ZOFRAN ODT4 MG PO (00:23)
[2023-05-03 01:00] VITALS: BP 125/85; PULSE 84
== END 2023-05-03 01:00 | disposition home or self-care (01) ==
LOC: COL.ER 23:01
PROVIDERS: Emergency Medicine
DX: R10.11 Right upper quadrant pain (principal); K82.8 Other specified diseases of gallbladder; R11.2 Nausea with vomiting, unspecified
CPT/HCPCS: J1885; J2270; J2405; J7030; Q9967

== ENCOUNTER 2024-02-13 14:55 | Emergency (ER) | payer OTHER ==
[~2024-02-13] VITALS: Ht 162.6 cm; Wt 102.3 kg
[2024-02-13 15:03] VITALS: TEMP 98.9
[2024-02-13 15:20] LABS: BASO % 0.3 % (0.0-2.0); EOS # 0.2 K/mm3 (0.0-0.7); EOS % 2.7 % (0.0-4.0); GRAN # 3.3 K/mm3 (1.4-6.5); GRAN % 53.2 % (42.2-75.2); HEMATOCRIT 35.1 % (37.0-47.0); HEMOGLOBIN 11.7 g/dl (12.5-16.0); LYMPH # 2.3 K/mm3 (1.2-3.4); LYMPH % 36.7 % (20.0-51.0); MEAN CELL VOLUME 83 fl (80.0-100.0); MEAN CORPUSCULAR HEMOGLOBIN 28 pg (27-31); MEAN CORPUSCULAR HGB CONC 33 g/dl (33.0-37.0); MEAN PLATELET VOLUME 9.7 fl (7.4-10.4); MONO # 0.4 K/mm3 (0.1-0.6); MONO % 6.9 % (1.7-9.3); PLATELET COUNT 210 K/mm3 (130-400); RED BLOOD COUNT 4.24 M/mm3 (4.10-5.30); REDCELL DISTRIBUTION WIDTH-CV 13.2 % (11.5-14.5)
[2024-02-13 15:39] LABS: ALBUMIN 3.8 g/dL (3.5-5.0); BILIRUBIN,TOTAL 0.3 mg/dL (0.2-1.2); CALCIUM 9.6 mg/dL (8.4-10.2); CREATININE, serum 0.81 mg/dL (0.57-1.11); POTASSIUM 4.2 mEq/L (3.5-4.5); TOTAL PROTEIN 7.6 g/dl (6.2-8.1)
[2024-02-13 15:45] LABS: TROPONIN-I 0.032 ng/mL (0.00-0.033)
[2024-02-13 18:23] VITALS: BP 121/81; PULSE 62
== END 2024-02-13 18:23 | disposition home or self-care (01) ==
LOC: COL.ER 14:55
PROVIDERS: Emergency Medicine
DX: R07.89 Other chest pain (principal)